=== PATIENT | male | born 1980 | race Caucasian/White ===

== ENCOUNTER 2016-10-26 22:18 | Emergency (ER) | payer MEDICAID, OTHER ==
[~2016-10-26] VITALS: Ht 167.6 cm; Wt 86.2 kg
[2016-10-26 22:21] VITALS: BP_SYST 147
[2016-10-26] MEDS ORDERED: CYCLOBENZAPRINE HCL 10 MG TABLET (FLEXERIL) PO ONE (22:45)
[2016-10-26] MEDS ORDERED: KETOROLAC TROMETHAMINE 60 MG/2 ML VIAL IM ONE (22:45)
[2016-10-26 23:56] VITALS: BP_SYST 138
== END 2016-10-26 23:56 | disposition home or self-care (01) ==
LOC: SED 22:18
DX: M62.838 Other muscle spasm (principal); Z88.6 Allergy status to analgesic agent
CPT/HCPCS: 73030; 96372; 99284; J1885; J7030

== ENCOUNTER 2016-10-27 04:43 | Emergency (ER) | payer MEDICAID ==
[~2016-10-27] VITALS: Ht 167.6 cm; Wt 86.2 kg
[2016-10-27 04:43] VITALS: BP_SYST 146
[2016-10-27] MEDS ORDERED: DIAZEPAM 10 MG/2 ML DISP.SYRIN IVP ONE (05:00)
[2016-10-27 05:59] LABS: BASOPHILS % (AUTO) 0.3 % (0.0-2.0); EOSINOPHILS # (AUTO) 0.1 K/uL (0.0-0.4); EOSINOPHILS % (AUTO) 0.9 % (0.0-4.0); HEMATOCRIT 40.7 % (36-54); HEMOGLOBIN 13.6 g/dL (14.0-18.0); LYMPHOCYTES # (AUTO) 2.8 K/uL (1.0-5.5); LYMPHOCYTES % (AUTO) 48.7 % (20.5-51.5); MEAN CORPUSCULAR HEMOGLOBIN 30 pg (27-31); MEAN CORPUSCULAR HGB CONC 34 % (32-36); MEAN CORPUSCULAR VOLUME 91 fL (79.0-98.0); MONOCYTES # (AUTO) 0.4 K/uL (0.0-1.0); MONOCYTES % (AUTO) 6.7 % (1.7-9.3); NEUTROPHILS # (AUTO) 2.6 K/uL (1.8-7.7); NEUTROPHILS % (AUTO) 43.4 % (40.0-70.0); PLATELET COUNT (AUTO) 224 K/uL (130-430); RED BLOOD CELL COUNT(AUTO) 4.49 MIL/uL (4.2-6.2); RED CELL DISTRIBUTION WIDTH 12.1 % (9.0-15.0); WHITE BLOOD COUNT (AUTO) 5.9 K/uL (4.8-10.8)
[2016-10-27] MEDS ORDERED: DEXAMETHASONE SOD PHOSPHATE 10 MG/ML VIAL IVP ONE (06:00)
[2016-10-27 06:27] LABS: ANION GAP 14 (5-15); CALCIUM 9.8 mg/dL (8.4-11.0); CHLORIDE 104 mmol/L (98-107); CREATININE 1.44 mg/dL (0.55-1.30); GLUCOSE 124 mg/dL (70-99); POTASSIUM 3.8 mmol/L (3.5-5.1); SODIUM SERUM 144 mmol/L (136-145); UREA NITROGEN, BLOOD 16 mg/dL (8-21)
[2016-10-27] MEDS ORDERED: HYDROmorphone 1 MG INJ. 1 MG/ML AMPUL IVP ONE (06:30)
[2016-10-27 06:31] LABS: GFR AFRICAN AMERICAN 71 mL/min (>90)
[2016-10-27] MEDS ORDERED: NACL 0.9% 1,000 ML IV ONE (06:45)
[2016-10-27 08:21] VITALS: BP_SYST 121
== END 2016-10-27 04:48 | disposition home or self-care (01) ==
LOC: SED 04:43
DX: M54.12 Radiculopathy, cervical region (principal); M62.838 Other muscle spasm; N17.9 Acute kidney failure, unspecified; E86.0 Dehydration; Z88.6 Allergy status to analgesic agent
CPT/HCPCS: 36415; 80048; 84484; 85025; 93005; 96361; 96374; 96375; 99285; J1100; J1170; J3360; J7030

== ENCOUNTER 2017-05-05 11:28 | Emergency (ER) | payer MEDICAID ==
[~2017-05-05] VITALS: Ht 167.6 cm; Wt 88.5 kg
[2017-05-05 11:40] VITALS: BP_SYST 122
[2017-05-05 12:40] VITALS: BP_SYST 122
== END 2017-05-05 12:40 | disposition home or self-care (01) ==
LOC: SED 11:28
DX: K21.9 Gastro-esophageal reflux disease without esophagitis (principal); J30.9 Allergic rhinitis, unspecified; R03.0 Elevated blood-pressure reading, without diagnosis of hypertension; Z88.6 Allergy status to analgesic agent
CPT/HCPCS: 99283